=== PATIENT | male | born 1950 | race Caucasian/White ===

== ENCOUNTER → 2024-10-18 | Outpatient (REF) | payer MEDICAID, SELFPAY ==
[2024-10-18 09:37] LABS: Hematocrit 39.9 % (40-54); Hemoglobin 13.2 g/dL (13.0-16.5); Mean Corp Hgb Conc 33.1 g/dL (32-36); Mean Corpuscular Volume 89.7 fL (80-94); Mean Platelet Vol. 10.0 fl (6.2-12.0); Platelet Count 264 K/mm3 (150-450); RBC Distribution Width CV 14.0 % (11.6-14.6); RBC Distribution Width SD 46.2 fl (35.1-43.9); Red Blood Count 4.45 M/mm3 (4.6-6.2); White Blood Count 7.0 K/mm3 (4.4-11.0)
[2024-10-18 10:21] LABS: AST(SGOT) 19 U/L (<=37); Alanine Aminotransfer ALT/SGPT 12 U/L (<=46); Albumin, Serum 4.1 g/dL (3.4-4.8); Alkaline Phosphatase 84 U/L (40-129); Anion Gap 10 (5-15); BUN 20 mg/dL (4-19); BUN/Creat Ratio 27.5 RATIO (10-20); Calcium,Total 9.3 mg/dL (7.6-11.0); Carbon Dioxide 24.6 mmol/L (21.0-32.0); Chloride 107 mmol/L (98-108); Globulin 3.0 g/dL (2.2-4.2); Glucose 97 mg/dL (70-99); Potassium 4.4 mmol/L (3.3-5.1)
[2024-10-18 10:25] LABS: T4 Total, Thyroxin 6.2 ug/dL (4.5-12.1); Vitamin D,25 Hydroxy 9.4 ng/mL (30-100)
== END | disposition home or self-care (01) ==
LOC: OLS.SW 05:45
PROVIDERS: Visit Provider Family Medicine
DX: N40.0 Benign prostatic hyperplasia without lower urinary tract symptoms (principal); F03.90 Unspecified dementia, unspecified severity, without behavioral disturbance, psychotic disturbance, mood disturbance, and anxiety; E78.5 Hyperlipidemia, unspecified
CPT/HCPCS: 36415; 80053; 82306; 83036; 84436; 84443; 85027

== ENCOUNTER → 2025-01-26 05:00 | Outpatient (REF) | payer MEDICAID, SELFPAY ==
--- OUTSIDE RECORDS SUMMARY | 2025-01-26 04:16 | XMS RPT_ITS | CCD ---
Author Organization [facility] Care Team Providers Care Knitter Hand Name Role Phone ROBERT DYE Unavailable Unavailable ROBERT DYE Unavailable Unavailable WALI MTZ Unavailable Unavaila FLORENCE Renee Unavailable Unavailable Florence Prieto MD Primary Care Provider [phone] Andreas Gomes Attending Unavailable Problems Problem Classification Problem Date Documented Da te Episodic/Chronic Delirium, dementia, and amnestic and other cognitive disorders (1 source) Unspecified dementia without behavioral disturbance; Translations: [Unspecified dementia, unspecified severity, without behavioral disturbance, psychotic disturbance, mood disturbance, and anxiety] Onset: 12-09-2024 Chronic Disorders of lipid metabolism (1 source) Hyperlipidemia, unspecified; Translations: [Hyperlipidemia, unspecified] Onset: 12-09-2024 Chronic Hyperplasia of prostate (1 source) Benign prostatic hyperplasia without lower urinary tract symptoms; Translations: [Benign prostatic hyperplasia without lower urinary tract symptoms] Onset: 12-09-2024 Chronic Unclassified (1 source) Encounter for screening for malignant neoplasm of colon; Translations: [Encounter for screening for malignant neoplasm of colon] Onset: 07-30-2017 Episodic Results Test Name Value Interpretation Reference Range Facility CBC-Complete Blood Cnt No Di ffon 10-18-2024 Erythrocyte distribution width (RBC) [Ratio] 14.0 % Normal 11.6-14.6 [facility] Comment on above: Performed By: #### L 501.9520, L100.0500, L506.1001, L501.9985, L500.4050, L501.9310 #### [facility] [address] [place], [address] Hematocrit (Bld) [Volume fraction] 39.9 % Low 40-54 [facility] Comment on above: Performed By: #### L 501.9520, L100.0500, L506.1001, L501.9985, L500.4050, L501.9310 #### [facility] [address] [place], [address] Hemoglobin (Bld) [Mass/Vol] 13.2 g/dL Normal 13.0-16.5 [facility] Comment on above: Performed By: #### L 501.9520, L100.0500, L506.1001, L501.9985, L500.4050, L501.9310 #### [facility] [address] [place], [address] MCH (RBC) [Entitic mass] 29.7 pg Normal 27.0-32.0 [facility] Comment on above: Performed By: #### L 501.9520, L100.0500, L506.1001, L501.9985, L500.4050, L501.9310 #### [facility] [address] [place], [address] MCHC (RBC) [Mass/Vol] 33.1 g/dL Normal 32-36 [facility] Comment on above: Performed By: #### L 501.9520, L100.0500, L506.1001, L501.9985, L500.4050, L501.9310 #### [facility] [address] [place], [address] MCV (RBC) [Entitic vol] 89.7 fL Normal 80-94 [facility] Comment on above: Performed By: #### L 501.9520, L100.0500, L506.1001, L501.9985, L500.4050, L501.9310 #### [facility] [address] [place], [address] Platelet mean volume (Bld) [Entitic vol] 10.0 fL Normal 6.2-12.0 [facility] Comment on above: Performed By: #### L 501.9520, L100.0500, L506.1001, L501.9985, L500.4050, L501.9310 #### [facility] [address] [place], [address] Platelets (Bld) [#/Vol] 264 10*3/uL Normal 150-450 [facility] Comment on above: Performed By: #### L 501.9520, L100.0500, L506.1001, L501.9985, L500.4050, L501.9310 #### [facility] [address] [place], [address] RBC (Bld) [#/Vol] 4.45 10*6/uL Low 4.6-6.2 [facility] Comment on above: Performed By: #### L 501.9520, L100.0500, L506.1001, L501.9985, L500.4050, L501.9310 #### [facility] [address] [place], [address] RDW SD 46.2 fl High 35.1-43.9 [facility] Comment on above: Performed By: #### L 501.9520, L100.0500, L506.1001, L501.9985, L500.4050, L501.9310 #### [facility] [address] [place], [address] WBC (Bld) [#/Vol] 7.0 10*3/uL Normal 4.4-11.0 [facility] Comment on above: Performed By: #### L 501.9520, L100.0500, L506.1001, L501.9985, L500.4050, L501.9310 #### [facility] [address] [place], [address] Comprehensive Metabolic Prof ilon 10-18-2024 Albumin [Mass/Vol] 4.1 g/dL Normal 3.4-4.8 [facility] Comment on above: Performed By: #### L 501.9520, L100.0500, L506.1001, L501.9985, L500.4050, L501.9310 #### [facility] [address] [place], [address] Albumin/Globulin [Mass ratio] 1.4 {ratio} Normal 0.9-2.4 [facility] Comment on above: Performed By: #### L 501.9520, L100.0500, L506.1001, L501.9985, L500.4050, L501.9310 #### [facility] [address] [place], [address] ALK PHOS 84 U/L Normal 40-129 [facility] Comment on above: Performed By: #### L 501.9520, L100.0500, L506.1001, L501.9985, L500.4050, L501.9310 #### [facility] [address] [place], [address] ALT [Catalytic activity/Vol] 12 U/L Normal <=46 [facility] Comment on above: Performed By: #### L 501.9520, L100.0500, L506.1001, L501.9985, L500.4050, L501.9310 #### [facility] [address] [place], [address] AST [Catalytic activity/Vol] 19 U/L Normal <=37 [facility] Comment on above: Performed By: #### L 501.9520, L100.0500, L506.1001, L501.9985, L500.4050, L501.9310 #### [facility] [address] [place], [address] Bilirubin [Mass/Vol] 0.23 mg/dL Normal 0.00-1.30 [facility] Comment on above: Performed By: #### L 501.9520, L100.0500, L506.1001, L501.9985, L500.4050, L501.9310 #### [facility] [address] [place], [address] BUN/CRE 27.5 RATIO High 10-20 [facility] Comment on above: Performed By: #### L 501.9520, L100.0500, L506.1001, L501.9985, L500.4050, L501.9310 #### [facility] [address] [place], [address] Calcium [Mass/Vol] 9.3 mg/dL Normal 7.6-11.0 [facility] Comment on above: Performed By: #### L 501.9520, L100.0500, L506.1001, L501.9985, L500.4050, L501.9310 #### [facility] [address] [place], [address] Chloride [Moles/Vol] 107 mmol/L Normal 98-108 [facility] Comment on above: Performed By: #### L 501.9520, L100.0500, L506.1001, L501.9985, L500.4050, L501.9310 #### [facility] [address] [place], [address] CO2 [Moles/Vol] 24.6 mmol/L Normal 21.0-32.0 [facility] Comment on above: Performed By: #### L 501.9520, L100.0500, L506.1001, L501.9985, L500.4050, L501.9310 #### [facility] [address] [place], [address] Creatinine [Mass/Vol] 0.73 mg/dL Normal 0.70-1.20 [facility] Comment on above: Performed By: #### L 501.9520, L100.0500, L506.1001, L501.9985, L500.4050, L501.9310 #### [facility] [address] [place], [address] GAP 10 Normal 5-15 [facility] Comment on above: Performed By: #### L 501.9520, L100.0500, L506.1001, L501.9985, L500.4050, L501.9310 #### [facility] [address] [place], [address] GFR/1.73 sq M.predicted among non-blacks MDRD (S/P/Bld) [Vol rate/Area] 96 mL/min/{1.73_m2} Normal >60 [facility] Comment on above: Result Comment: mL/m in/1.73m2 CKD-EPI Creatinine Equation (2020) Performed By: #### L 501.9520, L100.0500, L506.1001, L501.9985, L500.4050, L501.9310 #### [facility] [address] [place], [address] Globulin (S) [Mass/Vol] 3.0 g/dL Normal 2.2-4.2 [facility] Comment on above: Performed By: #### L 501.9520, L100.0500, L506.1001, L501.9985, L500.4050, L501.9310 #### [facility] [address] [place], [address] Glucose [Mass/Vol] 97 mg/dL Normal 70-99 [facility] Comment on above: Performed By: #### L 501.9520, L100.0500, L506.1001, L501.9985, L500.4050, L501.9310 #### [facility] [address] [place], [address] Potassium [Moles/Vol] 4.4 mmol/L Normal 3.3-5.1 [facility] Comment on above: Performed By: #### L 501.9520, L100.0500, L506.1001, L501.9985, L500.4050, L501.9310 #### [facility] [address] [place], [address] Sodium [Moles/Vol] 141 mmol/L Normal 133-145 [facility] Comment on above: Performed By: #### L 501.9520, L100.0500, L506.1001, L501.9985, L500.4050, L501.9310 #### [facility] [address] [place], [address] T PROT 7.0 g/dL Normal 5.9-8.4 [facility] Comment on above: Performed By: #### L 501.9520, L100.0500, L506.1001, L501.9985, L500.4050, L501.9310 #### [facility] [address] [place], [address] Urea nitrogen [Mass/Vol] 20 mg/dL High 4-19 [facility] Comment on above: Performed By: #### L 501.9520, L100.0500, L506.1001, L501.9985, L500.4050, L501.9310 #### [facility] [address] [place], [address] Hemoglobin A1con 10-18-2024 HbA1c (Bld) [Mass fraction] 5.9 % High <=5.6 [facility] Comment on above: Result Comment: Norm al < 5.7 % Prediabetic 5.7 - 6.4 % Diabetic >or= 6.5 % Please note range changes. Performed By: #### L 501.9520, L100.0500, L506.1001, L501.9985, L500.4050, L501.9310 #### [facility] [address] [place], [address] T4 Total, Thyroxinon 025 T4 [Mass/Vol] 6.2 ug/dL Normal 4.5-12.1 [facility] Comment on above: Performed By: #### L 501.9520, L100.0500, L506.1001, L501.9985, L500.4050, L501.9310 #### [facility] [address] [place], [address] Thyroid Stim Hormone (TSH)on 10-18-2024 TSH 1.670 uIU/mL Normal 0.300-4.200 [facility] Comment on above: Performed By: #### L 501.9520, L100.0500, L506.1001, L501.9985, L500.4050, L501.9310 #### [facility] [address] [place], [address] Vitamin D,25 Hydroxyon 10-18 Vitamin D 25-OH 9.4 ng/mL Low 30-100 [facility] Comment on above: Result Comment: Yee min D Status Deficiency: <20 ng/mL (50nmol/L) Insufficiency: 20-30 ng/mL (50-75 nmol/L) Sufficiency: 30-100 ng/mL (75-250 nmol/L) Toxicity: >100 ng/mL (>250 nmol/L) Performed By: #### L 501.9520, L100.0500, L506.1001, L501.9985, L500.4050, L501.9310 #### [facility] [address] [place], [address] 36on 06-25-2024 36 Name of caller: Dago odonnell Contact phone number: [phone] Relationship to Patient: [facility] Home Nurse Provider: Dr. Prieto Practice: [facility] Chief Complaint/Reason for Call: Mary states she would like to report a suspected fall for the patient. Mary states she is at the patient's home for his weekly visit regarding Dx: Cellulitis; and she observed new abrasions to the patient's (L) knee. Mary states when she asked the patient What happened, she states the patient replied, he must have fallen but not quite sure. Please be advised. (Kelly Chavarria, [facility]) Best time of day caller can be reached: Any Patient advised that office/PCP has 24-48 business hours to return their call: No Normal [facility] CBC (INCLUDES DIFF/PLT)on Basophils (Bld) [#/Vol] 0.09 10*3/uL Normal 0-200 [facility] Comment on above: Order Comment: 0 FASTING:YES FASTING: YES Performed By: #### 6 399 #### [facility] [address], [address] [place] [address] Disk Recordist: Quinn Kennedy MD Basophils/100 WBC (Bld) 1.0 % Normal [facility] Comment on above: Order Comment: 0 FASTING:YES FASTING: YES Performed By: #### 6 399 #### [facility] [address], [address] [place] [address] Disk Recordist: Quinn Kennedy MD Eosinophils (Bld) [#/Vol] 0.333 10*3/uL Normal 15-500 [facility] Comment on above: Order Comment: 0 FASTING:YES FASTING: YES Performed By: #### 6 399 #### [facility] [address], [address] [place] [address] Disk Recordist: Quinn Kennedy MD Eosinophils/100 WBC (Bld) 3.7 % Normal [facility] Comment on above: Order Comment: 0 FASTING:YES FASTING: YES Performed By: #### 6 399 #### [facility] [address], [address] [place] [address] Disk Recordist: Quinn Kennedy MD Erythrocyte distribution width (RBC) [Ratio] 12.4 % Normal 11.0-15.0 [facility] Comment on above: Order Comment: 0 FASTING:YES FASTING: YES Performed By: #### 6 399 #### [facility] of [address], [address] [place] [address] Disk Recordist: Quinn Kennedy MD Hematocrit (Bld) [Volume fraction] 41.9 % Normal 38.5-50.0 [facility] Comment on above: Order Comment: 0 FASTING:YES FASTING: YES Performed By: #### 6 399 #### [facility] of [address], [address] [place] [address] Disk Recordist: Quinn Kennedy MD Hemoglobin (Bld) [Mass/Vol] 13.8 g/dL Normal 13.2-17.1 [facility] Comment on above: Order Comment: 0 FASTING:YES FASTING: YES Performed By: #### 6 399 #### [facility] of [address], [address] [place] [address] Disk Recordist: Quinn Kennedy MD Lymphocytes (Bld) [#/Vol] 1.746 10*3/uL Normal 850-3900 [facility] Comment on above: Order Comment: 0 FASTING:YES FASTING: YES Performed By: #### 6 399 #### [facility] of [place] [address] Disk Recordist: Quinn Kennedy MD Lymphocytes/100 WBC (Bld) 19.4 % Normal [facility] Comment on above: Order Comment: 0 FASTING:YES FASTING: YES Performed By: #### 6 399 #### [facility] of [place] [address] Disk Recordist: Quinn Kennedy MD MCH (RBC) [Entitic mass] 29.7 pg Normal 27.0-33.0 [facility] Comment on above: Order Comment: 0 FASTING:YES FASTING: YES Performed By: #### 6 399 #### [facility] of [place] [address] Disk Recordist: Quinn Kennedy MD MCHC (RBC) [Mass/Vol] 32.9 g/dL Normal 32.0-36.0 [facility] Comment on above: Order Comment: 0 FASTING:YES FASTING: YES Result Comment: For adults, a slight decrease in the calculated MCHC value (in the range of 30 to 32 g/dL) is most likely not clinically significant; however, it should be interpreted with caution in correlation with other red cell parameters and the patient's clinical condition. Performed By: #### 6 399 #### [facility] of [place] [address] Disk Recordist: Quinn Kennedy MD MCV (RBC) [Entitic vol] 90.3 fL Normal 80.0-100.0 [facility] Comment on above: Order Comment: 0 FASTING:YES FASTING: YES Performed By: #### 6 399 #### [facility] [place] [address] Disk Recordist: Quinn Kennedy MD Monocytes (Bld) [#/Vol] 0.855 10*3/uL Normal 200-950 [facility] Comment on above: Order Comment: 0 FASTING:YES FASTING: YES Performed By: #### 6 399 #### [facility] [place] [address] Disk Recordist: Quinn Kennedy MD Monocytes/100 WBC (Bld) 9.5 % Normal [facility] Comment on above: Order Comment: 0 FASTING:YES FASTING: YES Performed By: #### 6 399 #### [facility] [place] [address] Disk Recordist: Quinn Kennedy MD Neutrophils (Bld) [#/Vol] 5.976 10*3/uL Normal 4747-4749 [facility] Comment on above: Order Comment: 0 FASTING:YES FASTING: YES Performed By: #### 6 399 #### [facility] [place] [address] Disk Recordist: Qiunn Kennedy MD Neutrophils/100 WBC (Bld) 66.4 % Normal [facility] Comment on above: Order Comment: 0 FASTING:YES FASTING: YES Performed By: #### 6 399 #### [facility] [place] [address] Disk Recordist: Quinn Kennedy MD Platelet mean volume (Bld) [Entitic vol] 9.6 fL Normal 7.5-12.5 [facility] Comment on above: Order Comment: 0 FASTING:YES FASTING: YES Performed By: #### 6 399 #### [facility] [place] [address] Disk Recordist: Quinn Kennedy MD Platelets (Bld) [#/Vol] 323 10*3/uL Normal 140-400 [facility] Comment on above: Order Comment: 0 FASTING:YES FASTING: YES Performed By: #### 6 399 #### [facility] [place] [address] Disk Recordist: Quinn Kennedy MD RBC (Bld) [#/Vol] 4.64 10*6/uL Normal 4.20-5.80 [facility] Comment on above: Order Comment: 0 FASTING:YES FASTING: YES Performed By: #### 6 399 #### [facility] [place] [address] Disk Recordist: Quinn Kennedy MD WBC (Bld) [#/Vol] 9.0 10*3/uL Normal 3.8-10.8 [facility] Comment on above: Order Comment: 0 FASTING:YES FASTING: YES Performed By: #### 6 399 #### [facility] [place] [address] Disk Recordist: Quinn Kennedy MD CBC (INCLUDES DIFF/PLT)on Basophils (Bld) [#/Vol] 0.082 10*3/uL Normal 0-200 [facility] Comment on above: Performed By: #### 1 0231, 5799 #### [facility] [place] [address] Disk Recordist: Quinn Kennedy MD Basophils/100 WBC (Bld) 0.6 % Normal [facility] Comment on above: Performed By: #### 1 0231, 6399 #### [facility] of [place] [address] Disk Recordist: Quinn Kennedy MD Eosinophils (Bld) [#/Vol] 0.286 10*3/uL Normal 15-500 [facility] Comment on above: Performed By: #### 1 0231, 6399 #### [facility] [place] [address] Disk Recordist: Quinn Kennedy MD Eosinophils/100 WBC (Bld) 2.1 % Normal [facility] Comment on above: Performed By: #### 1 0231, 6399 #### [facility] [place] [address] Disk Recordist: Quinn Kennedy MD Erythrocyte distribution width (RBC) [Ratio] 12.1 % Normal 11.0-15.0 [facility] Comment on above: Performed By: #### 1 023, 6399 #### [facility] [place] [address] Disk Recordist: Quinn Kennedy MD Hematocrit (Bld) [Volume fraction] 42.3 % Normal 38.5-50.0 [facility] Comment on above: Performed By: #### 1 023, 6399 #### [facility] [place] [address] Disk Recordist: Quinn Kennedy MD Hemoglobin (Bld) [Mass/Vol] 14.1 g/dL Normal 13.2-17.1 [facility] Comment on above: Performed By: #### 1 0231, 6399 #### [facility] [place] [address] Disk Recordist: Quinn Kennedy MD Lymphocytes (Bld) [#/Vol] 1.986 10*3/uL Normal 850-3900 [facility] Comment on above: Performed By: #### 1 0231, 6399 #### [facility] [place] [address] Disk Recordist: Quinn Kennedy MD Lymphocytes/100 WBC (Bld) 14.6 % Normal [facility] Comment on above: Performed By: #### 1 023, 6399 #### [facility] [place] [address] Disk Recordist: Quinn Kennedy MD MCH (RBC) [Entitic mass] 29.8 pg Normal 27.0-33.0 [facility] Comment on above: Performed By: #### 1 230, 6399 #### [facility] [place] [address] Disk Recordist: Quinn Kennedy MD MCHC (RBC) [Mass/Vol] 33.3 g/dL Normal 32.0-36.0 [facility] Comment on above: Result Comment: For adults, a slight decrease in the calculated MCHC value (in the range of 30 to 32 g/dL) is most likely not clinically significant; however, it should be interpreted with caution in correlation with other red cell parameters and the patient's clinical condition. Performed By: #### 1 230, 6399 #### [facility] [place] [address] Disk Recordist: Quinn Kennedy MD MCV (RBC) [Entitic vol] 89.4 fL Normal 80.0-100.0 [facility] Comment on above: Performed By: #### 1 230, 6399 #### [facility] [place] [address] Disk Recordist: Quinn Kennedy MD Monocytes (Bld) [#/Vol] 1.21 10*3/uL High 200-950 [facility] Comment on above: Performed By: #### 1 023, 6399 #### [facility] [place] [address] Disk Recordist: Quinn Kennedy MD Monocytes/100 WBC (Bld) 8.9 % Normal [facility] Comment on above: Performed By: #### 1 0231, 6399 #### [facility] of [address], [address] [place] [address] Disk Recordist: Quinn Kennedy MD Neutrophils (Bld) [#/Vol] 10.037 10*3/uL High 3514-0520 [facility] Comment on above: Performed By: #### 1 0231, 6399 #### [facility] of [address], [address] [place] [address] Disk Recordist: Quinn Kennedy MD Neutrophils/100 WBC (Bld) 73.8 % Normal [facility] Comment on above: Performed By: #### 1 0231, 6399 #### [facility] of [address], [address] [place] [address] Disk Recordist: Quinn Kennedy MD Platelet mean volume (Bld) [Entitic vol] 10.4 fL Normal 7.5-12.5 [facility] Comment on above: Performed By: #### 1 0231, 6399 #### [facility] of [address], [address] [place] [address] Disk Recordist: Quinn Kennedy MD Platelets (Bld) [#/Vol] 315 10*3/uL Normal 140-400 [facility] Comment on above: Performed By: #### 1 0231, 6399 #### [facility] of [address], [address] [place] [address] Disk Recordist: Quinn Kennedy MD RBC (Bld) [#/Vol] 4.73 10*6/uL Normal 4.20-5.80 [facility] Comment on above: Performed By: #### 1 0231, 6399 #### [facility] of [address], [address] [place] [address] Disk Recordist: Quinn Kennedy MD WBC (Bld) [#/Vol] 13.6 10*3/uL High 3.8-10.8 [facility] Comment on above: Performed By: #### 1 0231, 6399 #### [facility] of [address], [address] [place] [address] Disk Recordist: Quinn Kennedy MD COMPREHENSIVE METABOLIC PANE [facility] 05-27-2024 Albumin [Mass/Vol] 4.5 g/dL Normal 3.6-5.1 [facility] Comment on above: Order Comment: 0; 0 FASTING:YES FASTING: YES Performed By: #### 1 0231, 6399 #### [facility] [address], [address] [place] [address] Disk Recordist: Quinn Kennedy MD Albumin/Globulin [Mass ratio] 1.4 {ratio} Normal 1.0-2.5 [facility] Comment on above: Order Comment: 0; 0 FASTING:YES FASTING: YES Performed By: #### 1 0231, 6399 #### [facility] [place] [address] Disk Recordist: Quinn Kennedy MD ALP [Catalytic activity/Vol] 97 U/L Normal 35-144 [facility] Comment on above: Order Comment: 0; 0 FASTING:YES FASTING: YES Performed By: #### 1 0231, 6399 #### [facility] [address], [address] [place] [address] Disk Recordist: Quinn Kennedy MD ALT [Catalytic activity/Vol] 12 U/L Normal 9-46 [facility] Comment on above: Order Comment: 0; 0 FASTING:YES FASTING: YES Performed By: #### 1 0231, 6399 #### [facility] [address], [address] [place] [address] Disk Recordist: Quinn Kennedy MD AST [Catalytic activity/Vol] 17 U/L Normal 10-35 [facility] Comment on above: Order Comment: 0; 0 FASTING:YES FASTING: YES Performed By: #### 1 0231, 6399 #### [facility] [place] [address] Disk Recordist: Quinn Kennedy MD Bilirubin [Mass/Vol] 0.5 mg/dL Normal 0.2-1.2 [facility] Comment on above: Order Comment: 0; 0 FASTING:YES FASTING: YES Performed By: #### 1 0231, 6399 #### [facility] [address], [address] [place] [address] Disk Recordist: Quinn Kennedy MD BUN/CREATININE RATIO SEE NOTE: Normal 6- [facility] Comment on above: Order Comment: 0; 0 FASTING:YES FASTING: YES Result Comment: Not Reported: BUN and Creatinine are within reference range. Performed By: #### 1 0231, 6399 #### [facility] of [address], [address] [place] [address] Disk Recordist: Quinn Kennedy MD Calcium [Mass/Vol] 9.8 mg/dL Normal 8.6-10.3 [facility] Comment on above: Order Comment: 0; 0 FASTING:YES FASTING: YES Performed By: #### 1 0231, 6399 #### [facility] [address], [address] [place] [address] Disk Recordist: Quinn Kennedy MD Chloride [Moles/Vol] 103 mmol/L Normal 98-110 [facility] Comment on above: Order Comment: 0; 0 FASTING:YES FASTING: YES Performed By: #### 1 0231, 6399 #### [facility] [address], [address] [place] [address] Disk Recordist: Quinn Kennedy MD CO2 [Moles/Vol] 23 mmol/L Normal 20-32 [facility] Comment on above: Order Comment: 0; 0 FASTING:YES FASTING: YES Performed By: #### 1 0231, 6399 #### [facility] of [address], [address] [place] [address] Disk Recordist: Quinn Kennedy MD Creatinine [Mass/Vol] 0.84 mg/dL Normal 0.70-1.28 [facility] Comment on above: Order Comment: 0; 0 FASTING:YES FASTING: YES Performed By: #### 1 0231, 6399 #### [facility] [address], [address] [place] [address] Disk Recordist: Quinn Kennedy MD GFR/1.73 sq M.predicted among non-blacks MDRD (S/P/Bld) [Vol rate/Area] 92 mL/min/{1.73_m2} Normal > OR = 60 [facility] Comment on above: Order Comment: 0; 0 FASTING:YES FASTING: YES Performed By: #### 1 0231, 6399 #### [facility] [address], [address] [place] [address] Disk Recordist: Quinn Kennedy MD Globulin (S) [Mass/Vol] 3.2 g/dL Normal 1.9-3.7 [facility] Comment on above: Order Comment: 0; 0 FASTING:YES FASTING: YES Performed By: #### 1 0231, 6399 #### [facility] [place] [address] Disk Recordist: Quinn Kennedy MD Glucose [Mass/Vol] 87 mg/dL Normal 65-99 [facility] Comment on above: Order Comment: 0; 0 FASTING:YES FASTING: YES Result Comment: Fasting reference interval Performed By: #### 1 0231, 6399 #### [facility] [address], [address] [place] [address] Disk Recordist: Quinn Kennedy MD Potassium [Moles/Vol] 4.5 mmol/L Normal 3.5-5.3 [facility] Comment on above: Order Comment: 0; 0 FASTING:YES FASTING: YES Performed By: #### 1 0231, 6399 #### [facility] [place] [address] Disk Recordist: Quinn Kennedy MD Protein [Mass/Vol] 7.7 g/dL Normal 6.1-8.1 [facility] Comment on above: Order Comment: 0; 0 FASTING:YES FASTING: YES Performed By: #### 1 0231, 6399 #### [facility] [place] [address] Disk Recordist: Quinn Kennedy MD Sodium [Moles/Vol] 140 mmol/L Normal 135-146 [facility] Comment on above: Order Comment: 0; 0 FASTING:YES FASTING: YES Performed By: #### 1 0231, 6399 #### [facility] [address], [address] [place] [address] Disk Recordist: Quinn Kennedy MD Urea nitrogen [Mass/Vol] 14 mg/dL Normal - [facility] Comment on above: Order Comment: 0; 0 FASTING:YES FASTING: YES Performed By: #### 1 0231, 6399 #### [facility] [address], [address] [place] [address] Disk Recordist: Quinn Kennedy MD 36on 02-26-2024 36 S: Patient's neighbo r Elena spoke with [facility] nurse regarding prescription refill request. B: Onset of symptoms/concern Refills supposed to be sent 02/23/24. A: Patient's friend states he was supposed to have 3 prescriptions called into [facility] after his office visit on 02/23/24. She states she has been to pharmacy twice and have not received prescription request. On review of [facility] chart, Atoravastatin, Flomax and Lantanaprost were all to be sent into pharmacy. In review of office note, Refill Atorvastatin Calcium Tablet, 40 MG, 1 tab(s), orally, once a day (at bedtime), 90, Refills 4 . Refill Tamsulosin HCl Capsule, 0.4 MG, 1 cap(s), orally, once a day, 90, Refills 4, Notes to Pharmacist: At Bedtime . Refill Latanoprost Solution, 0.005 %, 1 gtt, in each eye, once a day (at bedtime), 90 days, 3, Refills 4 R: Medication listed above called into patient's pharmacy. Spoke with patient's friend again who advised prescriptions have been called in. Patient understands care advice. No further needs at this time. Patient instructed to call back with new or worsening symptoms. Reason for Disposition ? [1] Prescription not at pharmacy AND [2] was prescribed by PCP recently (Exception: [facility] has access to EMR and prescription is recorded there. Go to Home Care and confirm for pharmacy.) Protocols used: Medication Refill and Renewal [facility] CBC (H/H, RBC, INDICES, WBC, PLT)on 02-24-2024 Erythrocyte distribution width (RBC) [Ratio] 13.1 % Normal 11.0-15.0 [facility] Comment on above: Performed By: #### 1 759, 7600, 90588 #### [facility] [place] [address] Disk Recordist: Quinn Kennedy MD Hematocrit (Bld) [Volume fraction] 48.4 % Normal 38.5-50.0 [facility] Comment on above: Performed By: #### 1 759, 7600, 65836 #### [facility] [place] [address] Disk Recordist: Quinn Kennedy MD Hemoglobin (Bld) [Mass/Vol] 15.6 g/dL Normal 13.2-17.1 [facility] Comment on above: Performed By: #### 1 759, 7600, 23229 #### [facility] of [place] [address] Disk Recordist: Quinn Kennedy MD MCH (RBC) [Entitic mass] 29.7 pg Normal 27.0-33.0 [facility] Comment on above: Performed By: #### 1 759, 7600, 24278 #### [facility] [place] [address] Disk Recordist: Quinn Kennedy MD MCHC (RBC) [Mass/Vol] 32.2 g/dL Normal 32.0-36.0 [facility] Comment on above: Result Comment: For adults, a slight decrease in the calculated MCHC value (in the range of 30 to 32 g/dL) is most likely not clinically significant; however, it should be interpreted with caution in correlation with other red cell parameters and the patient's clinical condition. Performed By: #### 1 759, 7600, 44953 #### [facility] [place] [address] Disk Recordist: Quinn Kennedy MD MCV (RBC) [Entitic vol] 92.0 fL Normal 80.0-100.0 [facility] Comment on above: Performed By: #### 1 759, 7600, 59247 #### [facility] [place] [address] Disk Recordist: Quinn Kennedy MD Platelet mean volume (Bld) [Entitic vol] 10.3 fL Normal 7.5-12.5 [facility] Comment on above: Performed By: #### 1 759, 7600, 17165 #### [facility] [place] [address] Disk Recordist: Quinn Kennedy MD Platelets (Bld) [#/Vol] 255 10*3/uL Normal 140-400 [facility] Comment on above: Performed By: #### 1 759, 7600, 25572 #### [facility] [place] [address] Disk Recordist: Quinn Kennedy MD RBC (Bld) [#/Vol] 5.26 10*6/uL Normal 4.20-5.80 [facility] Comment on above: Performed By: #### 1 759, 7600, 68276 #### [facility] [place] [address] Disk Recordist: Quinn Kennedy MD WBC (Bld) [#/Vol] 3.6 10*3/uL Low 3.8-10.8 [facility] Comment on above: Performed By: #### 1 759, 7600, 58278 #### [facility] [place] [address] Disk Recordist: Quinn Kennedy MD [facility] 02-24-2024 Albumin [Mass/Vol] 4.6 g/dL Normal 3.6-5.1 [facility] Comment on above: Performed By: #### 1 759, 7600, 88144 #### [facility] [place] [address] Disk Recordist: Quinn Kennedy MD Albumin/Globulin [Mass ratio] 1.5 {ratio} Normal 1.0-2.5 [facility] Comment on above: Performed By: #### 1 759, 7600, 41708 #### [facility] [place] [address] Disk Recordist: Quinn Kennedy MD ALP [Catalytic activity/Vol] 87 U/L Normal 35-144 [facility] Comment on above: Performed By: #### 1 759, 7600, 19865 #### [facility] [place] [address] Disk Recordist: Quinn Kennedy MD ALT [Catalytic activity/Vol] 15 U/L Normal 9-46 [facility] Comment on above: Performed By: #### 1 759, 7600, 99268 #### [facility] [place] [address] Disk Recordist: Quinn Kennedy MD AST [Catalytic activity/Vol] 17 U/L Normal 10-35 [facility] Comment on above: Performed By: #### 1 759, 7600, 68787 #### [facility] [place] [address] Disk Recordist: Quinn Kennedy MD Bilirubin [Mass/Vol] 0.6 mg/dL Normal 0.2-1.2 [facility] Comment on above: Performed By: #### 1 759, 7600, 36128 #### [facility] [place] [address] Disk Recordist: Quinn Kennedy MD BUN/CREATININE RATIO SEE NOTE: Normal 6-22 [facility] Comment on above: Result Comment: Not Reported: BUN and Creatinine are within reference range. Performed By: #### 1 759, 7600, 94081 #### [facility] [place] [address] Disk Recordist: Quinn Kennedy MD Calcium [Mass/Vol] 9.6 mg/dL Normal 8.6-10.3 [facility] Comment on above: Performed By: #### 1 759, 7600, 10614 #### [facility] of [address], [address] [place] [address] Disk Recordist: Quinn Kennedy MD Chloride [Moles/Vol] 102 mmol/L Normal 98-110 [facility] Comment on above: Performed By: #### 1 759, 7600, 71262 #### [facility] [address], [address] [place] [address] Disk Recordist: Quinn Kennedy MD CO2 [Moles/Vol] 31 mmol/L Normal 20-32 [facility] Comment on above: Performed By: #### 1 759, 7600, 09960 #### [facility] [place] [address] Disk Recordist: Quinn Kennedy MD Creatinine [Mass/Vol] 0.76 mg/dL Normal 0.70-1.28 [facility] Comment on above: Performed By: #### 1 759, 7600, 88695 #### [facility] [place] [address] Disk Recordist: Quinn Kennedy MD GFR/1.73 sq M.predicted among non-blacks MDRD (S/P/Bld) [Vol rate/Area] 94 mL/min/{1.73_m2} Normal > OR = 60 [facility] Comment on above: Performed By: #### 1 759, 7600, 27767 #### [facility] [place] [address] Disk Recordist: Quinn Kennedy MD Globulin (S) [Mass/Vol] 3.1 g/dL Normal 1.9-3.7 [facility] Comment on above: Performed By: #### 1 759, 7600, 02320 #### [facility] [place] [address] Disk Recordist: Quinn Kennedy MD Glucose [Mass/Vol] 97 mg/dL Normal 65-99 [facility] Comment on above: Result Comment: Fasting reference interval Performed By: #### 1 759, 7600, 98808 #### [facility] of [address], [address] [place] [address] Disk Recordist: Quinn Kennedy MD Potassium [Moles/Vol] 4.3 mmol/L Normal 3.5-5.3 [facility] Comment on above: Performed By: #### 1 759, 7600, 41847 #### [facility] of [address], [address] [place] [address] Disk Recordist: Quinn Kennedy MD Protein [Mass/Vol] 7.7 g/dL Normal 6.1-8.1 [facility] Comment on above: Performed By: #### 1 759, 7600, 25762 #### [facility] of [address], [address] [place] [address] Disk Recordist: Quinn Kennedy MD Sodium [Moles/Vol] 140 mmol/L Normal 135-146 [facility] Comment on above: Performed By: #### 1 759, 7600, 93550 #### [facility] [address], [address] [place] [address] Disk Recordist: Quinn Kennedy MD Urea nitrogen [Mass/Vol] 17 mg/dL Normal 7-25 [facility] Comment on above: Performed By: #### 1 759, 7600, 59260 #### [facility] [place] [address] Disk Recordist: Quinn Kennedy MD LIPID PANEL, [facility] 02-09 Cholesterol [Mass/Vol] 269 mg/dL High <200 [facility] Comment on above: Order Comment: 0 FASTING FASTING Performed By: #### 1 759, 7600, 88894 #### [facility] [address], [address] [place] [address] Disk Recordist: Quinn Kennedy MD Cholesterol in HDL [Mass/Vol] 54 mg/dL Normal > OR = 40 [facility] Comment on above: Order Comment: 0 FASTING FASTING Performed By: #### 1 759, 7600, 77499 #### [facility] [address], [address] [place], [place] [address] Disk Recordist: Quinn Kennedy MD Cholesterol in LDL [Mass/Vol] 174 mg/dL High [facility] Comment on above: Order Comment: 0 FASTING FASTING Result Comment: Refe rence range: <100 Desirable range <100 mg/dL for primary prevention; <70 mg/dL for patients with CHD or diabetic patients with > or = 2 CHD risk factors. LDL-C is now calculated using the Michael calculation, which is a validated novel method providing better accuracy than the Friedewald equation in the estimation of LDL-C. Edmundo HERMAN et al. CHARISSA. 2013;310(19): 5063-3917 (http://education.[employer].Spaces 2 Host/faq/SKC560) Performed By: #### 1 627, 1850, 08300 #### [facility] [address], [address] [place] [address] Disk Recordist: Quinn Kennedy MD Cholesterol.total/ Cholesterol in HDL [Mass ratio] 5.0 {ratio} High <5.0 [facility] Comment on above: Order Comment: 0 FASTING FASTING Performed By: #### 1 968, 8570, 66146 #### [facility] [address], [address] [place] [address] Disk Recordist: Quinn Kennedy MD NON HDL CHOLESTEROL 215 mg/dL (calc) High <130 [facility] Comment on above: Order Comment: 0 FASTING FASTING Result Comment: For patients with diabetes plus 1 major ASCVD risk factor, treating to a non-HDL-C goal of <100 mg/dL (LDL-C of <70 mg/dL) is considered a therapeutic option. Performed By: #### 1 168, 9440, 02922 #### [facility] [address], [address] [place] [address] Disk Recordist: Quinn Kennedy MD Triglyceride [Mass/Vol] 251 mg/dL High <150 [facility] Comment on above: Order Comment: 0 FASTING FASTING Result Comment: If a non-fasting specimen was collected, consider repeat triglyceride testing on a fasting specimen if clinically indicated. Daly et al. J. of Clin. Lipidol. 2015;9:129-169. Performed By: #### 1 269, 3300, 86636 #### [facility] [address], [address] [place] [address] Disk Recordist: Quinn Kennedy MD PROGRESSon 08-19-2017 Protein HNO ID: [id number]: Wali Wong: (none)Author Type: PhysicianType: Progress NotesFiled: 08/19/2017 8:01 PMNote Text:Please call patient and advise that colonoscopy was abnormal, precancerouspolyp. Recall in 5 years.Wali Mtz MD Normal [facility] HISTORY PHYSICALon 8 HISTORY PHYSICAL HNO ID: [id number]: Wali Wong: (none)Author Type: PhysicianType: HANDPFiled: 07/30/2017 10:35 AMNote Text:HISTORY AND PHYSICAL Deven Mckeon, 66 year old male here for colonoscopy, average risk forcolon cancerCurrent history and physical on file: NoIs a new History and Physical required for today's visit? YesIndication for procedure: ScreeningPROCEDURE(S) SCHEDULED FOR: Colonoscopy with or without biopsies and with or without removal ofpolyps or lesions, dilation (any means), treatment of bleeding (anymeans), based on clinical findings.BASELINE BEHAVIOR: CalmBASELINE ORIENTATION: A AND O x3All medications and allergies reviewed: YesSkin Assessment: Warm dry muscus membranes pinkAirway/Respiratory Assessment:Airway: visualization of the uvula- YesMouth: opening greater than 2 fingerbreadths- YesNeck: full range of motion- YesBreath sounds clear/equal- YesCardiac Assessment: Regular rate and rhythm without murmurAbdominal Assessment: Abdomen soft, non-tender, no masses or organomegaly.Sedation Plan: DeepAdditional Comments: Evaristo Mtz MD Normal [facility] SURGICAL PATHOLOGYon 018 BMI (Body Mass Index) [facility]: [id number] Physician: WALI MTZ FINAL DIAGNOSISColon, distal transverse polyp, biopsy - Tubular adenoma./ 07/31/2017 Saul Guidry M.D., Ph.D.(Electronic Signature) SPECIMEN SUBMITTEDA: DISTAL TRANSVERSE COLON POLYP CLINICAL DATAscreeningGROSS DESCRIPTIONA. Received in formalin is one piece of mike, soft tissue measuring 0.3 x0.2 x 0.2 cm. Totally submitted in one cassette.Gross examination performed at [facility], [address] [place], [place] [id number] 07/31/2017 1:55:21 AMPatient ID #: [id number] of Report: 07/31/2017Date of Procedure: 07/30/2017Date of Receipt: 07/30/2017Submitted by: WALI MTZLocation: [facility] performed at [place] [address]. Normal [facility] CNCOon 06-22-2017 CNCO Letter TextCOLONOSCOPY-GOLYTEL YNO SOLID FOOD THE DAY BEFORE THIS EXAMAppointment Date: 07/30/17 at 10:00 AMFacility: [facility]- [address] [place] [id number] At: 9:15 AMSpecial Instructions: N/AYou must have a responsible adult to drive you home and assist you at homewhile you finish recovering from your sedation.Please bring only one person with you.Bring a list of your medications, insurance card and customer service driver's license.Arrive 30-45 minutes before your procedure time.Purchase at the Pharmacy: Fill prescription for Golytely and 4 Dulcolaxtablets.THE DAY BEFORE YOUR EXAM:1. FOLLOW A CLEAR LIQUID DIET ALL DAY.2. At 1:00PM, take 4 Dulcolax tablets.3. At 5:00PM, start drinking solution. Drink a total of eight 8 oz glasses,one every 15-20 minutes. Please put the rest of the solution in therefrigerator for tomorrow morning.THE DAY OF YOUR EXAM1. At 6:00 AM (four hours before your procedure) : drink one 8 oz glass lqaqi21-78 minutes. Drink a total of four 8 oz glasses. Discard the remainder ofthe solution.2. DO NOT DRINK ANYTHING ELSE AFTER THIS STEP IS COMPLETED. Nothingby mouth including clear liquids, food, gum and hard candy.5 DAYS BEFORE EXAMSTOP TAKING ASPIRIN OR ASPIRIN CONTAINING PRODUCTS, VITAMIN E AND IRON, BLOODTHINNERS SUCH COUMADIN, PLAVIX, AGGRENOX.DIABETICS ONLYTake only 1/2 of your daily dose of insulin or tablets the day before yourexam. Do not take any more of your diabetic medications until the procedureis over and you have resumed eating again. Drink regular liquids, notdiabetic and monitor your sugar throughout the day you are on clear liquids.If your sugar gets too low, drink some apple juice.It is very important that you drink all of the solution that we tell you todrink, if you do not complete the prep, your procedure may be cancelled.Any questions, please call our office at [phone] Ext [phone] or [phone]. Normal [facility] Encounters Encounter Date Encounter Type Care Provider Facility Start: 10-18-2024 End: 10-18-2024 ambulatory [facility] Facility:[facility] Start: 06-25-2024 End: 06-25-2024 Telephone encounter Florence Prieto MD Work Phone: [facility] Clinical Communication Comment on above: Advice Only (Report Pt Fall; (L) Knee Abrasion) Start: 06-09-2024 End: 06-09-2024 Telephone encounter Florence Prieto MD Work Phone: [facility] Clinical Communication Start: 02-26-2024 End: 02-26-2024 [facility] Start: 02-26-2024 End: 02-26-2024 Patient encounter [facility] Start: 07-30-2017 End: 07-30-2017 Patient encounter WALI MTZ [facility] Start: 11-25-2016 Ambulatory ROBERT DYE Brooks ity: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 Start: 1950 Sex assigned at Male [facility] Start: 09-09-2021 Sex Male (finding) [facility] Start: 11-28-2021 Gender identity Identifies as male gender (finding) [facility] Start: 11-28-2021 Sexual orientation Choose not to dis close [facility] Telephone encounter Note 06-25-2024 Telephone Encounter - Brigitte Chavarria - 06/25/2024 11:20 AM EDT Note Date & Type Note Facility 06-25-2024 Telephone encounter Note Form atting of this note might be different from the original. Name of caller: Mary Contact phone number: [phone] Relationship to Patient: [facility] Home Nurse Provider: Dr. Prieto Practice: [facility] Chief Complaint/Reason for Call: Mary states she would like to report a suspected fall for the patient. Mary states she is at the patient's home for his weekly visit regarding Dx: Cellulitis; and she observed new abrasions to the patient's (L) knee. Mary states when she asked the patient What happened, she states the patient replied, he must have fallen but not quite sure. Please be advised. (Kelly Chavarria, FER) Best time of day caller can be reached: Any Patient advised that office/PCP has 24-48 business hours to return their call: No [facility] Note 06-25-2024 Telephone Encounter - Brigitte Chavarria - 06/25/2024 11:20 AM EDT Note Date & Type Note Facility 06-25-2024 Miscellaneous Notes Formattin g of this note might be different from the original. Name of caller: Mary Contact phone number: [phone] Relationship to Patient: [facility] Nurse Provider: Dr. Prieto Practice: [facility] Chief Complaint/Reason for Call: Mary states she would like to report a suspected fall for the patient. Mary states she is at the patient's home for his weekly visit regarding Dx: Cellulitis; and she observed new abrasions to the patient's (L) knee. Mary states when she asked the patient What happened, she states the patient replied, he must have fallen but not quite sure. Please be advised. (Kelly Chavarria, [facility]) Best time of day caller can be reached: Any Patient advised that office/PCP has 24-48 business hours to return their call: No documented in this encounter [facility] Telephone encounter Note 02-26-2024 Telephone Encounter - Ciera Bernard RN - 02/26/2024 3:05 PM EST Note Date & Type Note Facility 02-26-2024 Telephone encount er Note S: Patient's neighbor Elena spoke with [facility] nurse regarding prescription refill request. B: Onset of symptoms/concern Refills supposed to be sent 02/23/24. A: Patient's friend states he was supposed to have 3 prescriptions called into [facility] after his office visit on 02/23/24. She states she has been to pharmacy twice and have not received prescription request. On review of [facility] chart, Atoravastatin, Flomax and Lantanaprost were all to be sent into pharmacy. In review of office note, Refill Atorvastatin Calcium Tablet, 40 MG, 1 tab(s), orally, once a day (at bedtime), 90, Refills 4 . Refill Tamsulosin HCl Capsule, 0.4 MG, 1 cap(s), orally, once a day, 90, Refills 4, Notes to Pharmacist: At Bedtime . Refill Latanoprost Solution, 0.005 %, 1 gtt, in each eye, once a day (at bedtime), 90 days, 3, Refills 4 R: Medication listed above called into patient's pharmacy. Spoke with patient's friend again who advised prescriptions have been called in. Patient understands care advice. No further needs at this time. Patient instructed to call back with new or worsening symptoms. Reason for Disposition [1] Prescription not at pharmacy AND [2] was prescribed by PCP recently (Exception: [facility] has access to EMR and prescription is recorded there. Go to Home Care and confirm for pharmacy.) Protocols used: Medication Refill and Renewal [facility] Note 02-26-2024 Telephone Encounter - Ciera Bernard RN - 02/26/2024 3:05 PM EST Note Date & Type Note Facility 02-26-2024 Miscellaneous Notes Formattin g of this note is different from the original. S: Patient's neighbor Elena spoke with [facility] nurse regarding prescription refill request. B: Onset of symptoms/concern Refills supposed to be sent 02/23/24. A: Patient's friend states he was supposed to have 3 prescriptions called into [facility] after his office visit on 02/23/24. She states she has been to pharmacy twice and have not received prescription request. On review of [facility] chart, Atoravastatin, Flomax and Lantanaprost were all to be sent into pharmacy. In review of office note, Refill Atorvastatin Calcium Tablet, 40 MG, 1 tab(s), orally, once a day (at bedtime), 90, Refills 4 . Refill Tamsulosin HCl Capsule, 0.4 MG, 1 cap(s), orally, once a day, 90, Refills 4, Notes to Pharmacist: At Bedtime . Refill Latanoprost Solution, 0.005 %, 1 gtt, in each eye, once a day (at bedtime), 90 days, 3, Refills 4 R: Medication listed above called into patient's pharmacy. Spoke with patient's friend again who advised prescriptions have been called in. Patient understands care advice. No further needs at this time. Patient instructed to call back with new or worsening symptoms. Reason for Disposition [1] Prescription not at pharmacy AND [2] was prescribed by PCP recently (Exception: [facility] has access to EMR and prescription is recorded there. Go to [facility] and confirm for pharmacy.) Protocols used: Medication Refill and Renewal [id number] documented in this encounter [facility] Summary Purpose Family History No Family History Records FoundNo Family History Records FoundNo Family History Records FoundNo Family History Records FoundNo Family History Records Found Advance Directives No Advanced Directives Records FoundNo Advanced Directives Records FoundNo Advanced Directives Records FoundNo Advanced Directives Records FoundNo Advanced Directives Records Found Additional Source Comments (unrecognized sect ion and content) No Status Records FoundNo Status Records FoundNo Status Records FoundNo Status Records FoundNo Status Records Found INFORMATION SOURCE (unrecogn ized section and content) DATE CREATED AUTHOR 08/04/2017 [facility] DATE CREATED AUTHOR AUTHOR'S ORGANIZ ATION 08/19/2017 [facility] DATE CREATED AUTHOR AUTHOR'S ORGANIZ ATION 05/31/2024 [facility] DATE CREATED AUTHOR AUTHOR'S ORGANIZ ATION 06/26/2024 [facility] DATE CREATED AUTHOR AUTHOR'S ORGANIZ ATION 12/11/2024 [facility] Reason for Visit (unrecogniz ed section and content) Reason Onset Date Comments Med Refill 02/26/2024 Reason Onset Date Comments Advice Only 06/25/2024 Report Pt Fall; (L) Knee Abrasion Care Teams (unrecognized sec tion and content) Knitter Hand Relationship Specialty Start Date End Date Florence Prieto MD [address] [place] [id number] PCP - General 11/28/14 Knitter [employer] Relationship Specialty Start Date End Date Florence Prieto MD [address] [place] [id number] PCP - General 11/28/14 FOR RECORDS PERTAINING TO PATIENTS WHO ARE OR HAVE BEEN ENROLLED IN A CHEMICAL DEPENDENCY/SUBSTANCEABUSE PROGRAM, SOME INFORMATION MAY BE OMITTED. This clinical summary was aggregated from multiple sources. Caution should be exercised in using it in the provision of clinical care. This summary normalizes information from multiple sources, and as a consequence, information in this document may materially change the coding, format and clinical context of patient data. In addition, data may be omitted in some cases. CLINICAL DECISIONS SHOULD BE BASED ON THE PRIMARY CLINICAL RECORDS. [employer] [facility]. provides no warranty or guarantee of the accuracy or completeness of information in this document.
[2025-01-26 09:46] LABS: Vitamin D,25 Hydroxy 41.2 ng/mL (30-100)
== END ==
LOC: OLS.SW 05:00
PROVIDERS: Visit Provider Family Medicine
DX: F03.B0 Unspecified dementia, moderate, without behavioral disturbance, psychotic disturbance, mood disturbance, and anxiety (principal); E78.5 Hyperlipidemia, unspecified; F81.9 Developmental disorder of scholastic skills, unspecified; Z79.899 Other long term (current) drug therapy
CPT/HCPCS: 36415; 82306